=== PATIENT | female | born 1950 | race Caucasian/White ===

== ENCOUNTER 2021-07-16 02:33 | Inpatient (IN) | payer MEDICARE ==
[~2021-07-16] VITALS: Ht 147.3 cm; Wt 45.5 kg
--- NOTE | 2021-07-16 03:17 | PHYS DOC ---
Past History Past Medical History: Anxiety, Depression, GERD, Hypertension, Hypothyroid Additional Past Medical Histor: breast and ovarian cancer (MARINO FITZGERALD DO) Past Surgical History: , Other Additional Past Surgical Histo: ovarian removed, carpal tunnel, mastectomy (MARINO FITZGERALD DO) Smoking: Quit Greater Than 1 Year Alcohol Use: None Drug Use: None (MARINO FITZGERALD DO) General Adult EDM: Chief Complaint: SHORTNESS OF BREATH HPI: HPI: 71-year-old female presents via EMS with several day history of shortness of air with associated productive cough. Denies history of COPD or CHF. Patient is a former smoker. Denies fever or chills. Denies known sick contacts. Denies known exposure to COVID-19. Patient does report COVID-19 vaccination with [employer]. Denies leg swelling or calf tenderness. Patient reports shortness of air worse with exertion. Denies trauma. (MARINO FITZGERALD DO) Review of Systems: Review of Systems: Constitutional: Denies fever or chills Eyes: Denies redness or eye pain HENT: Denies nasal congestion or sore throat Respiratory: Reports productive cough and shortness of breath Cardiovascular: Denies chest pain or palpitations GI: Denies abdominal pain, nausea, or vomiting : Denies dysuria or hematuria Musculoskeletal: Denies back pain or calf pain Integument: Denies rash or skin lesions or swelling Neurologic: Denies headache, focal weakness or sensory changes Complete systems were reviewed and found to be within normal limits, except as documented in this note. (MARINO FITZGERALD DO) Current Medications: Current Meds: Current Medications Medications (Trade) Dose Ordered Sig/[place] Start Time Stop Time Status Last Admin Dose Admin Dexamethasone Sodium Phosphate (Decadron) 10 mg 1X ONCE 07/16/21 03:30 07/16/21 03:31 Sodium Chloride 1,000 ml @ 1,000 mls/hr 1X ONCE 07/16/21 03:30 07/16/21 04:29 (MARINO FITZGERALD DO) Allergies: Allergies: Allergies Coded Allergies Type Severity Reaction Last Updated Verified iodine Allergy Intermediate 07/16/21 Yes (MARINO FITZGERALD DO) Physical Exam: PE: Constitutional: Well developed, well nourished, no acute distress, non-toxic appearance HENT: Normocephalic, atraumatic Eyes: Conjunctiva normal, no discharge Neck: Normal range of motion, no tenderness, supple Lungs & Thorax: No respiratory distress, equal chest rise and fall, rales at bases Cardiovascular: RRR, CR < 2 sec Abdomen: Soft, no tenderness Skin: Warm, dry, no erythema, no rash Extremities: No tenderness, ROM intact, no edema Neurologic: Alert and oriented X 3, normal motor function, normal sensory function, no focal deficits noted Psychologic: Affect normal, judgment normal (MARINO FITZGERALD DO) Current Patient Data: Vital Signs: Vital Signs Date Time Temp Pulse Resp B/P (MAP) Pulse Ox O2 Delivery O2 Flow Rate FiO2 07/16/21 02:33 98.3 78 26 156/80 (105) 99 Room Air (MARINO FITZGERALD DO) Vital Signs: Vital Signs Date Time Temp Pulse Resp B/P (MAP) Pulse Ox O2 Delivery O2 Flow Rate FiO2 07/16/21 02:33 98.3 78 26 156/80 (105) 99 Room Air Vital Signs Date Time Temp Pulse Resp B/P (MAP) Pulse Ox O2 Delivery O2 Flow Rate FiO2 07/16/21 05:42 93 141/76 07/16/21 05:25 97 BiPAP/CPAP 07/16/21 02:33 98.3 26 (JOEL ROME DO) EKG: EKG: @0302 NSR at 75bpm, NO ST elevation, QRS 108ms, QT/QTc 406/456ms (MARINO FITZGERALD DO) Radiology/Procedures: Radiology/Procedures: PROCEDURE: CHEST AP ONLY XR CHEST 1V History: Reason: dyspnea, COVID PUI / Spl. Instructions: / History: Comparison: None. Findings: Mild multifocal ill-defined opacities bilaterally. Probable small left pleural effusion. No pneumothorax. Normal heart size. Chronic left-sided rib fractures. Postop changes right axilla. Impression: 1. Mild multifocal ill-defined opacities bilaterally, may represent pneumonia including viral pneumonia. 2. Probable small left pleural effusion. Electronically signed by: Ramón Dunaway DO (07/16/2021 3:26 AM) [facility] (MARINO FITZGERALD DO) Radiology/Procedures: CTA CHEST History: Shortness of breath. Technique: CT of the chest was performed with intravenous contrast. PE protocol. Maximum intensity projection coronal and sagittal reconstructions were performed. Exposure: One or more of the following individualized dose reduction techniques were utilized for this examination: 1. Automated exposure control 2. Adjustment of the mA and/or kV according to patient size 3. Use of iterative reconstruction technique. Comparison: None Findings: Chest: No central pulmonary embolus although evaluation for distal pulmonary emboli is degraded by respiratory motion. Degraded evaluation of the aorta due to contrast bolus timing. Moderate atheromatous plaque within the aorta. Small mediastinal lymph nodes. Bilateral groundglass opacities with septal thickening. Small bilateral pleural effusions. No pneumothorax. Mild bronchial wall thickening. Upper abdomen: The imaged upper abdomen is unremarkable. Bones: Chronic sternal fracture. Impression: 1. No central pulmonary embolus although evaluation for distal emboli is degraded by respiratory motion. 2. Multifocal ground glass opacities with septal thickening, may represent pulmonary edema or infection. 3. Small bilateral pleural effusions. Electronically signed by: Ramón Dunaway DO (07/16/2021 6:37 AM) [facility] (JOEL ROME DO) Heart Score: C/O Chest Pain: N/A (MARINO FITZGERALD DO) C/O Chest Pain: No (JOEL ROME DO) Course & Med Decision Making: Course & Med Decision Making Pertinent Labs and Imaging studies reviewed. (See chart for details) Patient presents with progressive shortness of breath which is worse with exertion. Reports associated productive cough. Denies history of COPD or CHF. Reports Covid vaccination with [employer]. Patient is afebrile. EKG stable. Labs obtained and posted to chart. Initial troponin within normal limits. Rapid Covid testing negative. Lactic acid within normal limits. BNP significantly elevated to 22,000. Transdermal nitroglycerin and Lasix provided. D-dimer elevated. Patient does report history to iodine which causes hives. Reports had received during radiation therapy. Patient does report receiving IV dye without any incident. Patient received symptomatic treatment including dexamethasone, Benadryl, and Pepcid. Benadryl and Pepcid given later at which time patient became di aphoretic and agitated. Patient hyperventilating. Ativan therefore provided. Patient now somnolent with O2 sats dropping due to decreased respiration effort. BiPAP therefore applied. Will attempt to still undergo CT angio imaging. [id number]-signout given to Dr. Rome for further evaluation and final disposition. Discussed current findings and plan with patient's family, who acknowledge understanding and agreement. (MARINO FITZGERALD DO) Course & Med Decision Making I assumed care of patient after comprehensive signout from off going physician I reviewed entirety of ER work-up so far. I personally evaluated patient repeating certain aspects of history and physical examination with son at bedside Patient still dependent on supplemental oxygen. No pulmonary embolism but etiology of patient's hypoxia and respiratory failure is unknown. Infection versus pulmonary edema. Patient treated for both. IV antibiotics started. She is unfit for discharge home I contacted hospitalist service at [facility] and reviewed need for hospital admission, they accepted patient under their care I have updated patient and son at bedside on proposed plan of care that included hospital admission and they were amenable. All questions and concerns addressed prior to admission (JOEL ROME DO) Dragon Disclaimer: Dragalex Disclaimer: This electronic medical record was generated, in whole or in part, using a voice recognition dictation system. (MARINO FITZGERALD DO) Departure Departure: Impression: Primary Impression: Pneumonia Qualified Codes: J18.9 - Pneumonia, unspecified organism Additional Impressions: Elevated brain natriuretic peptide (BNP) level Elevated d-dimer Acute respiratory failure with hypoxia Disposition: ADMITTED INPATIENT Admitting Physician: Nikolai Wan (JOEL ROME DO) Condition: STABLE MARINO FITZGERALD DO Jul 16, 2021 03:17 JOEL ROME DO Jul 16, 2021 06:57
[2021-07-16 03:23] LABS: BASO % 0 % (0-3); EOS # 0.2 x10^3/uL (0.0-0.7); EOS % 2 % (0-3); HEMOGLOBIN 11.4 g/dL (12.0-15.5); LYMPH # 2.1 x10^3/uL (1.0-4.8); LYMPH % 19 % (24-48); MEAN CORPUSCULAR HEMOGLOBIN 30 pg (25-35); MEAN CORPUSCULAR HGB CONC 33 g/dL (31-37); MEAN CORPUSCULAR VOLUME 93 fL (79-100); MONO % 9 % (0-9); NEUT % 70 % (31-73); PLATELET COUNT 289 x10^3/uL (140-400); RED BLOOD COUNT 3.79 x10^6/uL (3.50-5.40); RED CELL DISTRIBUTION WIDTH 14.7 % (11.5-14.5); WHITE BLOOD COUNT 11.5 x10^3/uL (4.0-11.0)
--- NOTE | 2021-07-16 03:28 | RAD ---
XR CHEST 1V History: Reason: dyspnea, COVID PUI / Spl. Instructions: / History: Comparison: None. Findings: Mild multifocal ill-defined opacities bilaterally. Probable small left pleural effusion. No pneumotho rax. Normal heart size. Chronic left-sided rib fractures. Postop changes right axilla. Impression: 1. Mild multifocal ill-defined opacities bilaterally, may represent pneumonia including viral pneumo matt. 2. Probable small left pleural effusion. Electronically signed by: Ramón Dunaway DO (07/16/2021 3:26 AM) [facility]
[2021-07-16] MEDS ORDERED: IV NORMAL SALINE 1,000ML 1,000 ML IV SCH (03:30)
[2021-07-16] MEDS ORDERED: DEXAMETHASONE SOD PHOS 10 MG/ML VIAL. IVP ONE (03:30)
[2021-07-16] MEDS ORDERED: IV NORMAL SALINE 1,000ML 1,000 ML IV ONE (03:30)
[2021-07-16 03:31] LABS: CALCIUM 8.9 mg/dL (8.5-10.1); GFR 54.5; POTASSIUM 4.7 mmol/L (3.5-5.1)
[2021-07-16 03:44] LABS: ALBUMIN 3.3 g/dL (3.4-5.0); ALBUMIN/GLOBULIN RATIO 1.1 (1.0-1.7); MAGNESIUM 2.1 mg/dL (1.8-2.4); TOTAL BILIRUBIN 0.2 mg/dL (0.2-1.0); TOTAL PROTEIN 6.2 g/dL (6.4-8.2)
--- NOTE | 2021-07-16 03:45 | EKG ---
[address] [address] Test Date: 2021-07-16 Test Time: 03:02:04 Pat Name: YESENIA MEZA Department: Room: Gender: F Organizational Effectiveness Director: : 1950 Requested By: MARINO FITZGERALD Order Number: [id number] Reading MD: Bruno Pollack MD Measurements Intervals [place] Rate: 75 P: 52 [place]: 150 QRS: 26 QRSD: 108 T: 54 QT: 406 QTc: 456 Interpretive Statements SINUS RHYTHM LVH IVCD Electronically Signed On 07-16-2021 16:26:44 CDT by Bruno Pollack MD
[2021-07-16 04:21] LABS: BILIRUBIN,URINE NEG (NEG); CLARITY,URINE CLEAR; COLOR,URINE YELLOW; GLUCOSE,URINE NEG (NEG)
[2021-07-16 04:22] LABS: BACTERIA,URINE 0 /HPF (0-FEW); NITRITE,URINE NEG (NEG); RBC,URINE 0 /HPF (0-2); SQUAMOUS EPITHELIAL CELL,UR OCC /LPF; UROBILINOGEN,URINE 0.2 mg/dL (0.2 mg/dL); WBC,URINE OCC /HPF (0-4)
[2021-07-16] MEDS ORDERED: BENZ100C PO (04:25)
[2021-07-16] MEDS ORDERED: AZIT250T6 PO (04:25)
[2021-07-16] MEDS ORDERED: PRED20TA PO (04:25)
[2021-07-16] MEDS ORDERED: ALBU2.5V8 IH (04:25)
[2021-07-16] MEDS ORDERED: diphenhydrAMINE 50 MG/ML VIAL IVP ONE (05:00)
[2021-07-16] MEDS ORDERED: CONTRAST GIVEN. MC PRN (05:00)
[2021-07-16] MEDS ORDERED: FAMOTIDINE 20 MG/2 ML VIAL IVP ONE (05:00)
[2021-07-16] MEDS ORDERED: IOHEXOL 350 MG/ML 100 ML VIAL. IV ONE (05:00)
[2021-07-16] MEDS ORDERED: IPRATRPIUM/ALBUTEROL 0.5/2.5MG 3 ML NEBU. ONE ×2 (05:06→05:07)
[2021-07-16] MEDS ORDERED: NITROGLYCERIN OINT 1 GM PACKET. TP ONE (05:30)
[2021-07-16] MEDS ORDERED: IPRATRPIUM/ALBUTEROL 0.5/2.5MG 3 ML NEBU. NEB ONE (05:30)
[2021-07-16] MEDS ORDERED: FUROSEMIDE 40 MG/4 ML VIAL IVP ONE (05:30)
--- NOTE | 2021-07-16 06:39 | RAD ---
CTA CHEST History: Shortness of breath. Technique: CT of the chest was performed with intravenous contrast. PE protocol. Maximum intensity pr ojection coronal and sagittal reconstructions were performed. Exposure: One or more of the following individualized dose reduction techniques were utilized for thi s examination: 1. Automated exposure control 2. Adjustment of the mA and/or kV according to patient size 3. Use of iterative reconstruction technique. Comparison: None Findings: Chest: No central pulmonary embolus although evaluation for distal pulmonary emboli is degraded by re spiratory motion. Degraded evaluation of the aorta due to contrast bolus timing. Moderate atheromatou s plaque within the aorta. Small mediastinal lymph nodes. Bilateral groundglass opacities with septal thickening. Small bilateral pleural effusions. No pneumot horax. Mild bronchial wall thickening. Upper abdomen: The imaged upper abdomen is unremarkable. Bones: Chronic sternal fracture. Impression: 1. No central pulmonary embolus although evaluation for distal emboli is degraded by respiratory mot ion. 2. Multifocal ground glass opacities with septal thickening, may represent pulmonary edema or infect ion. 3. Small bilateral pleural effusions. Electronically signed by: Ramón Dunaway DO (07/16/2021 6:37 AM) [facility]
[2021-07-16] MEDS ORDERED: ACETAMINOPHEN 325 MG TABLET PO PRN (07:15)
[2021-07-16] MEDS ORDERED: AZITHROMYCIN 500 MG in IV NORMAL SALINE 250ML 250 ML IV ONE ×2 (07:15→13:15)
[2021-07-16] MEDS ORDERED: NITROGLYCERIN SUBLINGUAL 0.4 MG BOTTLE OF 25. SL PRN (07:15)
[2021-07-16] MEDS ORDERED: IV NORMAL SALINE 250ML 250 ML ONE ×2 (08:01→08:03)
[2021-07-16] MEDS ORDERED: AZITHROMYCIN 500 MG VIAL. IV ONE (08:01)
[2021-07-16] MEDS ORDERED: IV NORMAL SALINE 50ML 50 ML ONE (08:01)
[2021-07-16] MEDS ORDERED: cefTRIAXone SODIUM 1 GM VIAL ONE (08:02)
[2021-07-16 10:27] VITALS: BP 108/70
--- NOTE | 2021-07-16 11:04 | NUR ---
Nursing note PT admitted to the floor from the ED, by mathieu garza. Reports shortness of breath, no pain, placed in bed, call light within reach. admission assessment done.
--- NOTE | 2021-07-16 11:32 | NUR ---
Nursing note PT gave permission for information to be given to any of her family members.
--- NOTE | 2021-07-16 13:42 | HP ---
ADMIT DATE: 07/16/2021 ATTENDING PHYSICIAN: Dr. Johnson. CHIEF COMPLAINT: Shortness of breath. HISTORY OF PRESENT ILLNESS: The patient is a 71-year-old female who has been fairly active. She has had a nonproductive cough. She has had increasing shortness of breath, dyspnea with minimal exertion and feels tired all the time. She is a smoker, continues to smoke heavily. She has had a history of ovarian cancer and breast cancer resulting in bilateral mastectomies. In the ED, chest x-ray and CT showed evidence of pleural effusions, infiltrate cannot be ruled out. This is more vascular congestion and congestive heart failure. She says she had a normal echocardiogram 5 years ago. She sees a primary care physician in [place], [place]. She is very sketchy in her detail. She is admitted then with acute on chronic congestive heart failure. She has responded well to Lasix already and was breathing better. PAST MEDICAL HISTORY: Significant for generalized anxiety, depression, hypertension, gastroesophageal reflux disease, hypothyroidism, breast cancer and ovarian cancer. She has had hysterectomy, carpal tunnel syndrome and bilateral mastectomies. SOCIAL HISTORY: She is a smoker. She denies any alcohol use. FAMILY HISTORY: Mom of pancreatic cancer at age 51. Father of congestive heart failure at age 76. She is still active. 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 She has had COVID vaccines. She has had generalized weakness lately. Her sleep has been fair, but her symptoms are very vague. ALLERGIES: SHE HAS ALLERGIES TO IODINE. CURRENT MEDICATIONS: Include the following: She was not on any prescription meds and we are trying to figure this out. There is none listed. She was given Lasix, nitroglycerin, and potassium in the ED. PHYSICAL EXAMINATION: GENERAL: When I saw her, this is a pleasant female who is alert. VITAL SIGNS: Initial vital signs showed a blood pressure of 141/78, pulse is 92 and regular. She is afebrile. Oxygen saturation 92% on 2 liters by nasal cannula. HEENT: Head is without trauma. Pupils are reactive. Sclerae nonicteric. Oropharynx clear. NECK: Supple, no bruits. LUNGS: Bibasilar crackles. CARDIOVASCULAR: Showed regular heart tones. No gallops. ABDOMEN: Soft. EXTREMITIES: Show trace edema. NEUROLOGIC: Function is focally intact. SKIN: Warm and dry. PERTINENT LABORATORY STUDIES: The hemoglobin is 11.4 g/dL, white count 11,500. Chemistry panel within normal range. Creatinine 1.0 mg/dL, potassium 4.7. The first set of cardiac enzymes showed troponin 0.04, still below the normal limits. BNP was 22,000. Chest x-ray as noted. Serology: Rapid COVID was negative. ASSESSMENT: 1. A 71-year-old female with acute congestive heart failure. 2. Probable ischemic cardiomyopathy. 3. Chronic obstructive pulmonary disease. 4. History of breast cancer with bilateral mastectomies. 5. History of ovarian cancer. 6. Hypothyroidism by history. PLAN: 1. Admit to the inpatient unit. 2. Diuresis with Lasix. 3. Daily weights and fluid restriction. 4. Serial chemistries. 5. Echocardiogram. 6. Formal Cardiology consultation will be obtained. 7. I suspect her echocardiogram will be abnormal. Further diagnostic testing and cardiac catheterization may be considered. This will be up to Cardiology services. JOSSELYN/ELLIOT DR: Lorie TID: [id number]
[2021-07-16] MEDS ORDERED: FUROSEMIDE 40 MG/4 ML VIAL IVP SCH (14:00)
--- NOTE | 2021-07-16 14:31 | NUR ---
Consult for bariatric program coordinator has been called.
[2021-07-16] MEDS ORDERED: MELO15TA23 PO (14:52)
[2021-07-16] MEDS ORDERED: LEVO50TA PO (14:52)
[2021-07-16] MEDS ORDERED: PANT40TA6 PO (14:52)
[2021-07-16] MEDS ORDERED: METO25TA4 PO (14:52)
[2021-07-16] MEDS ORDERED: VENL150C PO (15:02)
[2021-07-16 15:20] VITALS: BP 134/65
--- NOTE | 2021-07-16 15:57 | PDOC2 ---
CARDIAC CONSULT DATE OF CONSULT DOS: DATE: 07/16/21 TIME: 15:54 REASON FOR CONSULT Reason for Consult Dyspnea on exertion REFERRING PHYSICIAN Referring Physician Dr. Johnson SOURCE Source: Patient HPI History of Present Illness 71-year-old woman who presents to the hospital in the setting of worsening exertional dyspnea and cough over the last several days. Prior to that she was in her usual state of health and doing heavy exertional activities as a [place] but did have declining functional capacity. Upon arrival to the ER she was noted to have vascular congestion on evaluation with a CT scan. She was given diuretics and admitted for further evaluation. The patient denies any angina. She does not have any syncope or palpitations. When I asked the patient to really think about when her symptoms started, she reports that they began about a year ago and have slowly worsened. She also reported a murmur that she has has for 5 years. PAST MEDICAL HISTORY Past Medical History 1. Hypertension 2. Hypothyroidism 3. Prior history of breast and ovarian cancer status post mastectomies 4. Tobacco abuse PAST SURGICAL HISTORY Past Surgical History As noted FAMILY HISTORY Family History Positive for malignancy and heart disease but no early heart disease noted SOCIAL HISTORY Social History She is fairly active and works as a [place]. Denies any illicit drug use. Rare alcohol use. She continues to smoke. CURRENT MEDICATIONS Current Medications Current Medications Sodium Chloride 1,000 ml @ 1,000 mls/hr Q1H IV ; Start 07/16/21 at 03:30; Stop 07/16/21 at 04:29; Status DC Sodium Chloride 1,000 ml @ 1,000 mls/hr 1X ONCE IV Last administered on 07/16/21at 03:43; Start 07/16/21 at 03:30; Stop 07/16/21 at 04:29; Status DC Dexamethasone Sodium Phosphate (Decadron) 10 mg 1X ONCE IVP Last administered on 07/16/21at 03:44; Start 07/16/21 at 03:30; Stop 07/16/21 at 03:31; Status DC Diphenhydramine HCl (Benadryl) 50 mg 1X ONCE IVP Last administered on 07/16/21at 04:44; Start 07/16/21 at 05:00; Stop 07/16/21 at 05:01; Status DC Famotidine (Pepcid Vial) 20 mg 1X ONCE IVP Last administered on 07/16/21at 04:44; Start 07/16/21 at 05:00; Stop 07/16/21 at 05:01; Status DC Iohexol (Omnipaque 350 Mg/ml) 100 ml 1X ONCE IV Last administered on 07/16/21at 06:45; Start 07/16/21 at 05:00; Stop 07/16/21 at 05:01; Status DC Info (Do NOT chart on this entry -- for MONITORING) 1 each PRN DAILY PRN MC SEE COMMENTS; Start 07/16/21 at 05:00; Stop 07/18/21 at 04:59 Albuterol/ Ipratropium (Duoneb) 3 ml STK-MED ONCE .ROUTE ; Start 07/16/21 at 05:06; Stop 07/16/21 at 05:07; Status DC Albuterol/ Ipratropium (Duoneb) 3 ml STK-MED ONCE .ROUTE ; Start 07/16/21 at 05:07; Stop 07/16/21 at 05:08; Status DC Lorazepam (Ativan Inj) 2 mg STK-MED ONCE .ROUTE ; Start 07/16/21 at 05:11; Stop 07/16/21 at 05:11; Status DC Lorazepam (Ativan Inj) 1 mg 1X ONCE IVP Last administered on 07/16/21at 05:15; Start 07/16/21 at 05:30; Stop 07/16/21 at 05:31; Status DC Albuterol/ Ipratropium (Duoneb) 3 ml 1X ONCE NEB Last administered on 07/16/21at 05:08; Start 07/16/21 at 05:30; Stop 07/16/21 at 05:31; Status DC Nitroglycerin (Nitro-Bid Oint) 0.5 inch 1X ONCE TP Last administered on 07/16/21at 05:42; Start 07/16/21 at 05:30; Stop 07/16/21 at 05:47; Status DC Furosemide (Lasix) 40 mg 1X ONCE IVP Last administered on 07/16/21at 05:43; Start 07/16/21 at 05:30; Stop 07/16/21 at 05:47; Status DC Azithromycin 500 mg/Sodium Chloride 250 ml @ 250 mls/hr 1X ONCE IV ; Start 07/16/21 at 07:15; Stop 07/16/21 at 08:14; Status DC Ceftriaxone Sodium 1 gm/ Sodium Chloride 50 ml @ 100 mls/hr 1X ONCE IV Last administered on 07/16/21at 09:32; Start 07/16/21 at 07:15; Stop 07/16/21 at 07:44; Status DC Acetaminophen (Tylenol) 650 mg PRN Q4HRS PRN PO FEVER > 100.3'F; Start 07/16/21 at 07:15; Stop 07/17/21 at 07:14 Nitroglycerin (Nitrostat) 0.4 mg PRN Q5MIN PRN SL CHEST PAIN; Start 07/16/21 at 07:15; Stop 07/17/21 at 07:14 Sodium Chloride 250 ml @ As Directed STK-MED ONCE .ROUTE ; Start 07/16/21 at 08:01; Stop 07/16/21 at 08:02; Status DC Sodium Chloride 50 ml @ As Directed STK-MED ONCE .ROUTE ; Start 07/16/21 at 08:01; Stop 07/16/21 at 08:02; Status DC Azithromycin (Zithromax) 500 mg STK-MED ONCE IV ; Start 07/16/21 at 08:01; Stop 07/16/21 at 08:02; Status DC Ceftriaxone Sodium (Rocephin) 1 gm STK-MED ONCE .ROUTE ; Start 07/16/21 at 08:02; Stop 07/16/21 at 08:02; Status DC Sodium Chloride 250 ml @ As Directed STK-MED ONCE .ROUTE ; Start 07/16/21 at 08:03; Stop 07/16/21 at 08:04; Status DC Furosemide (Lasix) 80 mg BID92 IVP Last administered on 07/16/21at 14:35; Start 07/16/21 at 14:00 Potassium Chloride (Klor-Con) 20 meq BID PO ; Start 07/16/21 at 21:00 Azithromycin 500 mg/Sodium Chloride 250 ml @ 250 mls/hr 1X ONCE IV ; Start 07/16/21 at 13:15; Stop 07/16/21 at 13:35; Status DC Azithromycin 500 mg/Sodium Chloride 250 ml @ 250 mls/hr Q24H IV ; Start 07/16/21 at 21:00 Nystatin (Nystop) 1 miguel BID TP ; Start 07/16/21 at 21:00 Active Scripts Active Reported Effexor Xr (Venlafaxine Hcl) 150 Mg Cap.er.24h 2 Cap PO DAILY Pantoprazole Sodium 40 Mg Tablet.dr 1 Tab PO DAILY Metoprolol Tartrate 25 Mg Tablet 1 Tab PO BID Synthroid (Levothyroxine Sodium) 50 Mcg Tablet 1 Tab PO DAILY Meloxicam 15 Mg Tablet 15 Mg PO DAILY ALLERGIES Allergies: Coded Allergies: iodine (Verified Allergy, Intermediate, 07/16/21) ROS Review of Systems Negative for 10 out of 14 systems reviewed unless otherwise mentioned above in HPI PHYSICAL EXAM General: Alert, Oriented X3, Cooperative HEENT: Atraumatic Lungs: Clear to auscultation, Other (Mild bibasilar rales) Heart: Regular rate, Normal S1, Normal S2, Other (She has a 4/6 systolic murmur with diminished S2 consistent with at least moderate . ) Abdomen: Normal bowel sounds, Soft Extremities: No clubbing Skin: No rashes Neuro: Normal gait Psych/Mental Status: Mental status NL MUSCULOSKELETAL: No joint tenderness VITALS Vital Signs Vital Signs Date Time Temp Pulse Resp B/P (MAP) Pulse Ox O2 Delivery O2 Flow Rate FiO2 07/16/21 15:20 97.6 87 18 134/65 (88) 95 07/16/21 10:40 Nasal Cannula 2.0 LABS LABS Laboratory Tests Test 07/16/21 02:50 07/16/21 02:55 07/16/21 03:35 07/16/21 03:40 White Blood Count 11.5 x10^3/uL (4.0-11.0) Red Blood Count 3.79 x10^6/uL (3.50-5.40) Hemoglobin 11.4 g/dL (12.0-15.5) Hematocrit 35.0 % (36.0-47.0) Mean Corpuscular Volume 93 fL (79-100) Mean Corpuscular Hemoglobin 30 pg (25-35) Mean Corpuscular Hemoglobin Concent 33 g/dL (31-37) Red Cell Distribution Width 14.7 % (11.5-14.5) Platelet Count 289 x10^3/uL (140-400) Neutrophils (%) (Auto) 70 % (31-73) Lymphocytes (%) (Auto) 19 % (24-48) Monocytes (%) (Auto) 9 % (0-9) Eosinophils (%) (Auto) 2 % (0-3) Basophils (%) (Auto) 0 % (0-3) Neutrophils # (Auto) 8.0 x10^3uL (1.8-7.7) Lymphocytes # (Auto) 2.1 x10^3/uL (1.0-4.8) Monocytes # (Auto) 1.0 x10^3/uL (0.0-1.1) Eosinophils # (Auto) 0.2 x10^3/uL (0.0-0.7) Basophils # (Auto) 0.0 x10^3/uL (0.0-0.2) Sodium Level 143 mmol/L (136-145) Potassium Level 4.7 mmol/L (3.5-5.1) Chloride Level 107 mmol/L (98-107) Carbon Dioxide Level 27 mmol/L (21-32) Anion Gap 9 (6-14) Blood Urea Nitrogen 20 mg/dL (7-20) Creatinine 1.0 mg/dL (0.6-1.0) Estimated GFR (Cockcroft-Gault) 54.5 BUN/Creatinine Ratio 20 (6-20) Glucose Level 90 mg/dL (70-99) Calcium Level 8.9 mg/dL (8.5-10.1) Magnesium Level 2.1 mg/dL (1.8-2.4) Total Bilirubin 0.2 mg/dL (0.2-1.0) Aspartate Amino Transf (AST/SGOT) 28 U/L (15-37) Alanine Aminotransferase (ALT/SGPT) 33 U/L (14-59) Alkaline Phosphatase 72 U/L (46-116) Creatine Kinase 131 U/L (26-192) Creatine Kinase MB (Mass) 3.9 ng/mL (0.0-3.6) Creatine Kinase MB Relative Index 3.0 % (0-4) Troponin I Quantitative 0.040 ng/mL (0-0.055) GN-Yed-E-Type Natriuretic Peptide 78899 pg/mL (0-124) Total Protein 6.2 g/dL (6.4-8.2) Albumin 3.3 g/dL (3.4-5.0) Albumin/Globulin Ratio 1.1 (1.0-1.7) Coronavirus (COVID-19)(PCR) Not detected (NOT DETECTD) SARS-CoV-2 Antigen (Rapid) Negative (NEGATIVE) Prothrombin Time 10.4 SEC (9.4-11.4) Prothromb Time International Ratio 1.0 (0.9-1.1) Activated Partial Thromboplast Time 23 SEC (23-33) D-Dimer (Paula) 1.54 mg/L (0.00-0.50) Lactic Acid Level 0.6 mmol/L (0.4-2.0) Urine Collection Type Unknown Urine Color Yellow Urine Clarity Clear Urine pH 6.0 Urine Specific [place] >=1.030 Urine Protein Neg (NEG-TRACE) Urine Glucose (UA) Neg mg/dL (NEG) Urine Ketones (Stick) Neg mg/dL (NEG) Urine Blood Neg (NEG) Urine Nitrite Neg (NEG) Urine Bilirubin Neg (NEG) Urine Urobilinogen Dipstick 0.2 mg/dL (0.2 mg/dL) Urine Leukocyte Esterase Neg (NEG) Urine RBC 0 /HPF (0-2) Urine WBC Occ /HPF (0-4) Urine Squamous Epithelial Cells Occ /LPF Urine Bacteria 0 /HPF (0-FEW) IMAGES IMAGES CTA of the chest and EKG reviewed EKG EKG Unremarkable ECHOCARDIOGRAM Echocardiogram Currently pending STRESS TEST Stress Test None available for review HEART CATH Heart Cath None available ASSESSMENT/PLAN Assessment/Plan 1. Acute respiratory failure: Differential diagnosis includes COPD exacerbation versus heart failure although this appears to be mostly heart failure related based on her presentation and laboratory evaluation and imaging studies. I am suspicious that she has severe aortic stenosis based on her exam. Unable to rule out systolic versus diastolic heart failure based on presentation. 2. Hypertension 3. Dyslipidemia 4. Tobacco abuse Plans: 1. Obtain echo. 2. Continue diuretics. 3. Consider outpt cath etc based on echo findings. 4. Decrease lasix to 40mg IVP bid. We will follow along closely. OLMAN BROWN MD Jul 16, 2021 15:57
[2021-07-16] MEDS ORDERED: LORazepam 0.5 MG TABLET PO PRN (18:00)
[2021-07-16 19:12] VITALS: BP 105/66
--- NOTE | 2021-07-16 20:02 | NUR ---
PT coming out of room on multiple occasions prior to assessment. PT ambulating without assistance. PT does not want to stay in bed, pacing in room. PT appears to be steady. Advised PT multiple times to sit in bed or chair. PT pleasantly refused, anxious.
[2021-07-16] MEDS ORDERED: NYSTATIN TOPICAL POWDER 15GM BOTTLE. TP SCH (21:00)
[2021-07-16] MEDS ORDERED: AZITHROMYCIN 500 MG in IV NORMAL SALINE 250ML 250 ML IV SCH (21:00)
[2021-07-16 21:07] VITALS: BP 121/67
[2021-07-16] MEDS: POTASSIUM CHLORIDE 20 MEQ TABLET.ER. PO SCH (21:13)
[2021-07-16] MEDS: METOPROLOL TART IMMED RELEASE 25 MG TABLET. PO SCH (21:14)
[2021-07-16 23:16] VITALS: BP 101/66
[2021-07-17 05:17] VITALS: BP 105/58
[2021-07-17] MEDS ORDERED: LEVOTHYROXINE 50 MCG TABLET PO SCH (06:00)
[2021-07-17 06:06] LABS: CALCIUM 9.1 mg/dL (8.5-10.1); CREATININE 1.2 mg/dL (0.6-1.0); GFR 44.2
[2021-07-17] MEDS: POTASSIUM CHLORIDE 20 MEQ TABLET.ER. PO SCH (08:09)
[2021-07-17] MEDS: VENLAFAXINE 100 MG TABLET. PO SCH ×2 (08:09→13:56)
[2021-07-17] MEDS: METOPROLOL TART IMMED RELEASE 25 MG TABLET. PO SCH (08:09)
--- NOTE | 2021-07-17 08:37 | PDOC ---
FABIAN ALFARO CHIEF TALENT OFFICER 07/17/21 0837: CARDIO Progress Notes Date & Time Date of Service DATE: 07/17/21 TIME: 08:27 Time of Evaluation 08:27 Subjective Notes breathing improved. No CP Vitals Vitals Vital Signs Date Time Temp Pulse Resp B/P (MAP) Pulse Ox O2 Delivery O2 Flow Rate FiO2 07/17/21 08:09 78 105/58 07/17/21 05:17 97.5 20 94 Room Air 07/16/21 15:20 2.0 Weight Weight [ ] Input and Output I.O. Intake and Output 07/17/21 07:00 Intake Total 830 ml Balance 830 ml Intake Oral 480 ml IV Total 350 ml # Voids 3 Laboratory Labs Laboratory Tests Test 07/16/21 02:50 07/16/21 02:55 07/16/21 03:35 07/16/21 03:40 White Blood Count 11.5 x10^3/uL (4.0-11.0) Red Blood Count 3.79 x10^6/uL (3.50-5.40) Hemoglobin 11.4 g/dL (12.0-15.5) Hematocrit 35.0 % (36.0-47.0) Mean Corpuscular Volume 93 fL (79-100) Mean Corpuscular Hemoglobin 30 pg (25-35) Mean Corpuscular Hemoglobin Concent 33 g/dL (31-37) Red Cell Distribution Width 14.7 % (11.5-14.5) Platelet Count 289 x10^3/uL (140-400) Neutrophils (%) (Auto) 70 % (31-73) Lymphocytes (%) (Auto) 19 % (24-48) Monocytes (%) (Auto) 9 % (0-9) Eosinophils (%) (Auto) 2 % (0-3) Basophils (%) (Auto) 0 % (0-3) Neutrophils # (Auto) 8.0 x10^3uL (1.8-7.7) Lymphocytes # (Auto) 2.1 x10^3/uL (1.0-4.8) Monocytes # (Auto) 1.0 x10^3/uL (0.0-1.1) Eosinophils # (Auto) 0.2 x10^3/uL (0.0-0.7) Basophils # (Auto) 0.0 x10^3/uL (0.0-0.2) Sodium Level 143 mmol/L (136-145) Potassium Level 4.7 mmol/L (3.5-5.1) Chloride Level 107 mmol/L (98-107) Carbon Dioxide Level 27 mmol/L (21-32) Anion Gap 9 (6-14) Blood Urea Nitrogen 20 mg/dL (7-20) Creatinine 1.0 mg/dL (0.6-1.0) Estimated GFR (Cockcroft-Gault) 54.5 BUN/Creatinine Ratio 20 (6-20) Glucose Level 90 mg/dL (70-99) Calcium Level 8.9 mg/dL (8.5-10.1) Magnesium Level 2.1 mg/dL (1.8-2.4) Total Bilirubin 0.2 mg/dL (0.2-1.0) Aspartate Amino Transf (AST/SGOT) 28 U/L (15-37) Alanine Aminotransferase (ALT/SGPT) 33 U/L (14-59) Alkaline Phosphatase 72 U/L (46-116) Creatine Kinase 131 U/L (26-192) Creatine Kinase MB (Mass) 3.9 ng/mL (0.0-3.6) Creatine Kinase MB Relative Index 3.0 % (0-4) Troponin I Quantitative 0.040 ng/mL (0-0.055) YD-Eyn-F-Type Natriuretic Peptide 08637 pg/mL (0-124) Total Protein 6.2 g/dL (6.4-8.2) Albumin 3.3 g/dL (3.4-5.0) Albumin/Globulin Ratio 1.1 (1.0-1.7) Coronavirus (COVID-19)(PCR) Not detected (NOT DETECTD) SARS-CoV-2 Antigen (Rapid) Negative (NEGATIVE) Prothrombin Time 10.4 SEC (9.4-11.4) Prothromb Time International Ratio 1.0 (0.9-1.1) Activated Partial Thromboplast Time 23 SEC (23-33) D-Dimer (Paula) 1.54 mg/L (0.00-0.50) Lactic Acid Level 0.6 mmol/L (0.4-2.0) Urine Collection Type Unknown Urine Color Yellow Urine Clarity Clear Urine pH 6.0 Urine Specific [place] >=1.030 Urine Protein Neg (NEG-TRACE) Urine Glucose (UA) Neg mg/dL (NEG) Urine Ketones (Stick) Neg mg/dL (NEG) Urine Blood Neg (NEG) Urine Nitrite Neg (NEG) Urine Bilirubin Neg (NEG) Urine Urobilinogen Dipstick 0.2 mg/dL (0.2 mg/dL) Urine Leukocyte Esterase Neg (NEG) Urine RBC 0 /HPF (0-2) Urine WBC Occ /HPF (0-4) Urine Squamous Epithelial Cells Occ /LPF Urine Bacteria 0 /HPF (0-FEW) Test 07/17/21 05:44 Sodium Level 141 mmol/L (136-145) Potassium Level 4.0 mmol/L (3.5-5.1) Chloride Level 104 mmol/L (98-107) Carbon Dioxide Level 29 mmol/L (21-32) Anion Gap 8 (6-14) Blood Urea Nitrogen 20 mg/dL (7-20) Creatinine 1.2 mg/dL (0.6-1.0) Estimated GFR (Cockcroft-Gault) 44.2 Glucose Level 97 mg/dL (70-99) Calcium Level 9.1 mg/dL (8.5-10.1) Physical Exams HEENT: Neck Supple W Full Motion Chest: Symmetric Lungs: Clear to Auscultation Heart: RRR, murmurs (4/6 systolic murmur ) Abdomen: Soft N/T Extremities: No Edema Neurology: alert, oriented, follow commands Assessment Assessment 1. Acute respiratory failure with acute CHF, AE COPD. low suspicion for PNA given clinic improvement 2. Acute on chronic CHF; unable to rule out systolic versus diastolic dysfunction. improved s/p IV diuresis. 3. Valvular disease; suspected at least moderate 4. Hypertension; controlled 5. Dyslipidemia 6. Hypothyroidism; on replacement 7. Tobacco abuse; discussed/encouraged cessation Recommendations Echo to assess LV systolic function, valvular disease Convert diuretics to oral Discussed 2Gm Na diet, FR, and daily weight monitoring Further ischemic evaluation, etc based upon echo findings Supportive care OLMAN BROWN MD 07/17/21 1129: CARDIO Progress Notes Plan Plan Pt. seen and examined. Agree with above DIRECTOR OF PEDIATRIC REHABILITATION note. Supportive care. FABIAN ALFARO APRN Jul 17, 2021 08:37 OLMAN BROWN MD Jul 17, 2021 11:29
[2021-07-17] MEDS ORDERED: PANTOPRAZOLE 40 MG TABLET. PO SCH (09:00)
[2021-07-17] MEDS ORDERED: FUROSEMIDE 40 MG/4 ML VIAL IVP SCH (09:00)
[2021-07-17 10:46] VITALS: BP 103/61
--- NOTE | 2021-07-17 11:33 | DS ---
DATE OF DISCHARGE: 07/17/2021 ATTENDING PHYSICIAN: Dr. Johnson. FINAL DISCHARGE DIAGNOSES: 1. Acute congestive heart failure, most likely systolic. 2. Probable ischemic cardiomyopathy. 3. Chronic obstructive pulmonary disease. 4. Continued tobacco addiction. 5. History of breast cancer with bilateral mastectomies. 6. History of ovarian cancer with resection. 7. Hypothyroidism by history. HISTORY AND PHYSICAL: This is a 71-year-old female admitted with increasing shortness of breath and chest pressure. She had a chest x-ray evidence of congestive heart failure, pneumonia could be ruled out. She did not have COVID symptoms. She was not febrile. PHYSICAL EXAMINATION: Please see my dictated note. PERTINENT LABORATORY AND X-RAY STUDIES: Admission hemoglobin was 11.4 g/dL, white count 11,500. Chemistry panel: Creatinine is 1.0 mg/dL. Electrolytes within normal range. Cardiac enzymes negative for coronary ischemia and her BNP was 22,000. CT scan was also done. It showed congestive heart failure, bilateral infiltrates, pneumonia could not be ruled out, but she did not have pneumonia. Serology was negative for coronavirus rapid and PCR. COURSE IN THE HOSPITAL: The patient was admitted. She was started on diuretics. She had fluid restriction and serial chemistries. Formal Cardiology consultation was obtained. They agreed with the plan. She did well. She responded and she was having adequate saturation on room air. She slept much better the second night. Arrangements were then made for outpatient echocardiogram and nuclear medicine stress test. Further testing depending on what the echo showed. Strong encouragement to avoid further tobacco use, whether or not she will quit smoking remains to be seen. She was discharged then with Lasix 80 mg p.o. daily, K-Dur 20 mEq p.o. daily and continuation of her Synthroid, metoprolol, Protonix, and Effexor. I have asked her to stop the Mobic for now. I arranged with Cardiology to schedule her for outpatient echocardiogram and stress test in the early part of next week. She was discharged then from our hospital in stable condition with explicit instruction and followup care. I also added a baby aspirin daily. Total discharge time spent [address]: Lorie TID: [id number]
[2021-07-17] MEDS ORDERED: METO50TA29 PO (14:00)
[2021-07-17] MEDS ORDERED: FURO40TA4 PO (14:00)
[2021-07-17] MEDS ORDERED: POTA20TA4 PO (14:00)
[2021-07-17] MEDS ORDERED: ASPI-889 PO (14:00)
--- NOTE | 2021-07-17 15:46 | NUR ---
PATIENT IS DISCHARGED HOME , DISCHARGE INSTRUCTION, MEDICATIONS AND FOLLOW UP APPOINTMENT REVIEWED, PATIENT AND FAMILY MEMBER VERBALIZED UNDERSTANDING. PATIENT LEFT ROOM VIA W/C ACCOMP BY SELF. PATIENT TAKEN HOME BY SON VIA PERSONAL VEHICLE.
--- NOTE | 2021-07-17 16:29 | CARD ---
MR#: [id number] Date of Study: 07/17/2021 Ordering Physician: FABIAN ALFARO, Referring Physician: FABIAN ALFARO, Tech: Sloan Ham [facility] APPROVED REPORT EXAM: Two-dimensional and M-mode echocardiogram with Doppler and color Doppler. Other Information Quality : GoodHR: 58bpm Rhythm : Bradycardia INDICATION Aortic Valve Disease Murmur RISK FACTORS Hypertension Smoking 2D DIMENSIONS Left Atrium(2D)4.0 (1.6-4.0cm)IVSd1.1 (0.7-1.1cm) Aortic Root(2D)2.6 (2.0-3.7cm)LVDd5.1 (3.9-5.9cm) LVOT Diameter1.8 (1.8-2.4cm)PWd1.0 (0.7-1.1cm) LVDs4.3 (2.5-4.0cm)FS (%) 16.0 % SV42.0 ml Aortic Valve AoV Peak Arthur.512.1cm/sAoV KJK919.3cm AO Peak GR.104.9mmHgLVOT Peak Arthur.56.5cm/s LVOT VTI 14.39cmAO Mean GR.75mmHg MARK (VMAX)0.31ew9YSN (VTI)0.25cm2 AI P 1/2 [id number] Mitral Valve MV E Vgtklgmo348.3cm/sMV E Peak Gr.5mmHg MV DECEL [id number] A [place]73.3cm/s MV E Mean Gr.2mmHgE/A Ratio1.6 Pulmonary Valve PV Peak Meaanfoe99.2cm/sPV Peak Grad.1mmHg Tricuspid Valve TR P. Robtvxif032ov/sTR Peak Gr.37mmHg Pulmonary Vein S1 Hcnqkekj63.4cm/sD2 Fvxbqefc04.2cm/s LEFT VENTRICLE The left ventricle is normal size. There is borderline concentric left ventricular hypertrophy. The l eft ventricular systolic function is normal. The ejection fraction is 55%. There is normal LV segment al wall motion. Tissue Doppler imaging reveals moderate left ventricular diastolic dysfunction. No le ft ventricle thrombus noted on this study. There is no ventricular septal defect visualized. There is no left ventricular aneurysm. There is no mass noted in the left ventricle. RIGHT VENTRICLE The right ventricle is normal size. There is normal right ventricular wall thickness. The right ventr icular systolic function is normal. ATRIA The left atrium is moderately dilated. The right atrium size is normal. The interatrial septum is int act with no evidence for an atrial septal defect or patent foramen ovale as noted on 2-D or Doppler i maging. AORTIC VALVE The aortic valve is severely calcified and displays decreased opening. Doppler and Color Flow reveale d moderate aortic regurgitation. There is severe valvular aortic stenosis. Calculated aortic valve ar ea is 0.3 cm2 with maximum pressure gradient of 105 mmHg and mean pressure gradient of 70 mmHg. There is no aortic valvular vegetation. MITRAL VALVE The mitral valve is thickened but opens well. There is no evidence of mitral valve prolapse. There is no mitral valve stenosis. Doppler and Color-flow revealed trace to mild mitral regurgitation. TRICUSPID VALVE The tricuspid valve is normal in structure and function. Doppler and Color Flow revealed trace tricus pid regurgitation. The PA pressure was estimated at 41 mmHg. There is no tricuspid valve prolapse or vegetation. There is no tricuspid valve stenosis. PULMONIC VALVE The pulmonary valve is normal in structure and function. Doppler and Color Flow revealed no pulmonic valvular regurgitation. There is no pulmonic valvular stenosis. GREAT VESSELS The aortic root is normal in size. The ascending aorta is normal in size. The pulmonary artery is nor mal. The IVC is normal in size and collapses >50% with inspiration. PERICARDIAL EFFUSION There is no pleural effusion. There is no evidence of significant pericardial effusion. Critical Notification Physician Notified Physician Name:DR. Pollack Critical Value: No <Conclusion> The left ventricular systolic function is normal. The ejection fraction is 55%. There is normal LV segmental wall motion. The left atrium is moderately dilated. Severe valvular aortic stenosis with mean pressure gradient of 70 mmHg. Moderate aortic regurgitation. Trace to mild mitral regurgitation. Trace tricuspid regurgitation. The PA pressure was estimated at 41 mmHg. There is no evidence of significant pericardial effusion. Signed by : Gabo Han, Electronically Approved : 07/17/2021 16:29:15
[2021-07-18] MEDS ORDERED: ASPIRIN ENTERIC COATED 81 MG TABLET.DR. PO SCH (08:00)
[2021-07-18] MEDS ORDERED: FUROSEMIDE 40 MG TABLET PO SCH (09:00)
[2021-07-18] MEDS ORDERED: POTASSIUM CHLORIDE 20 MEQ TABLET.ER. PO SCH (09:00)
== END 2021-07-17 15:45 | disposition home or self-care (01) | DRG 291 ==
LOC: ER 02:33 → UNDOADMIN 07:05 → 1 SOUTH 07:05
PROVIDERS: ADMIT Internal Medicine; ATTEND Internal Medicine
PROC: 5A09357 Assistance with Respiratory Ventilation, Less than 24 Consecutive Hours, Continuous Positive Airway Pressure (ICD-10-PCS; principal; 2021-07-16)
DX: I11.0 Hypertensive heart disease with heart failure (principal); J96.00 Acute respiratory failure, unspecified whether with hypoxia or hypercapnia; I50.21 Acute systolic (congestive) heart failure; F17.200 Nicotine dependence, unspecified, uncomplicated; F41.1 Generalized anxiety disorder; E78.5 Hyperlipidemia, unspecified; E03.9 Hypothyroidism, unspecified; F32.A Depression, unspecified; K21.9 Gastro-esophageal reflux disease without esophagitis; J44.9 Chronic obstructive pulmonary disease, unspecified; I25.5 Ischemic cardiomyopathy; Z20.822 Contact with and (suspected) exposure to COVID-19; Z90.710 Acquired absence of both cervix and uterus; Z90.13 Acquired absence of bilateral breasts and nipples; Z85.43 Personal history of malignant neoplasm of ovary; Z85.3 Personal history of malignant neoplasm of breast; Z82.49 Family history of ischemic heart disease and other diseases of the circulatory system; Z80.0 Family history of malignant neoplasm of digestive organs; Z79.899 Other long term (current) drug therapy; Z79.82 Long term (current) use of aspirin; Z91.041 Radiographic dye allergy status
CPT/HCPCS: 36415; 71045; 71275; 80048; 80053; 80061; 81001; 82553; 83605; 83735; 83880; 84484; 85025; 85379; 85610; 85730; 87426; 93005; 93306; 94640; 94660; 96361; 96374; 96375; J0456; J0696; J1100; J1200; J1940; J2060; J3490; J7050; Q9967; U0003; 99285-25; J7030